=== PATIENT | female | born 1970 | race Caucasian/White ===

== ENCOUNTER 2020-08-02 15:09 | Emergency (ER) | payer BC ==
[2020-08-02] MEDS ORDERED: PROTONIX TR40 M1 PO (16:29)
[2020-08-02] MEDS ORDERED: COREG 25MG25 MG/TAB PO (16:30)
[2020-08-02] MEDS ORDERED: LEVOTHYROXINE100 MC1 PO (16:30)
[2020-08-02] MEDS ORDERED: ELIQUIS5 MG PO (16:30)
[2020-08-02] MEDS ORDERED: DITROPAN 5MG TAB5 MG PO (16:30)
[2020-08-02] MEDS ORDERED: LYRICA 150MG C150 MG PO (16:30)
[2020-08-02] MEDS ORDERED: LIPITOR20 M2 PO (16:31)
[2020-08-02] MEDS ORDERED: TRAMADOL 50 MG TAB PO (16:31)
[2020-08-02] MEDS ORDERED: PRILOSEC 20MG20 MG PO (16:31)
[2020-08-02] MEDS ORDERED: CYCLOBENZAPRINE10 M1 PO (16:31)
[2020-08-02] MEDS ORDERED: DESYREL 100MG100 MG PO (16:31)
[2020-08-02] MEDS ORDERED: CELEXA 20MG20 MG/TA1 PO (16:32)
[2020-08-02] MEDS ORDERED: XANAX0.5 M1 PO (16:32)
[2020-08-02] MEDS ORDERED: ANTIDEPRESSANT PO (16:32)
[2020-08-02 17:44] VITALS: BP 109/76
== END 2020-08-02 17:45 | disposition home or self-care (01) ==
LOC: ED 15:09
DX: S46.001A Unspecified injury of muscle(s) and tendon(s) of the rotator cuff of right shoulder, initial encounter (principal); M25.552 Pain in left hip; R07.81 Pleurodynia; F32.9 Major depressive disorder, single episode, unspecified; Z86.718 Personal history of other venous thrombosis and embolism; Z86.711 Personal history of pulmonary embolism; Z79.01 Long term (current) use of anticoagulants; Z79.891 Long term (current) use of opiate analgesic; W18.30XA Fall on same level, unspecified, initial encounter; Y92.090 Kitchen in other non-institutional residence as the place of occurrence of the external cause

== ENCOUNTER 2021-01-01 15:22 | Emergency (ER) | payer BC ==
[~2021-01-01 15:22] MED LIST: ANTIDEPRESSANT PO; CELEXA 20MG20 MG/TA1 PO; COREG 25MG25 MG/TAB PO; CYCLOBENZAPRINE10 M1 PO; DESYREL 100MG100 MG PO; DITROPAN 5MG TAB5 MG PO; ELIQUIS5 MG PO; LEVOTHYROXINE100 MC1 PO; LIPITOR20 M2 PO; LYRICA 150MG C150 MG PO; PRILOSEC 20MG20 MG PO; PROTONIX TR40 M1 PO; TRAMADOL 50 MG TAB PO; XANAX0.5 M1 PO
[2021-01-01] MEDS ORDERED: TOPIRAMATE25 MG PO (15:48)
[2021-01-01] MEDS ORDERED: DULOXETINE30 MG PO (15:48)
[2021-01-01] MEDS ORDERED: SUMATRIPTAN SU100 MG PO (15:48)
[2021-01-01 18:44] VITALS: BP 119/71
== END 2021-01-01 18:43 | disposition home or self-care (01) ==
LOC: ED 15:22
DX: R51.9 Headache, unspecified (principal); F07.81 Postconcussional syndrome; G89.29 Other chronic pain; M54.9 Dorsalgia, unspecified; F41.9 Anxiety disorder, unspecified; I10 Essential (primary) hypertension; F32.9 Major depressive disorder, single episode, unspecified; F17.200 Nicotine dependence, unspecified, uncomplicated; Z86.69 Personal history of other diseases of the nervous system and sense organs; Z86.718 Personal history of other venous thrombosis and embolism; Z86.711 Personal history of pulmonary embolism; Z79.01 Long term (current) use of anticoagulants
CPT/HCPCS: J0595; J2060; J7030

== ENCOUNTER 2021-03-15 13:55 | Outpatient (RCR) | payer BC ==
[~2021-03-15 13:55] MED LIST changes: +DULOXETINE30 MG PO; +SUMATRIPTAN SU100 MG PO; +TOPIRAMATE25 MG PO
== END 2021-06-13 | disposition home or self-care (01) ==
LOC: PT
DX: M25.512 Pain in left shoulder (principal); M75.02 Adhesive capsulitis of left shoulder

== ENCOUNTER 2021-11-16 12:49 | Outpatient (RCR) | payer BC | END 2021-12-11 | disposition home or self-care (01) | LOC: PT | DX: M25.512 Pain in left shoulder (principal) ==

== ENCOUNTER 2021-12-19 14:00 | Outpatient (RCR) | payer BC | END 2022-01-11 | disposition still patient (30) | LOC: PT | DX: M25.512 Pain in left shoulder (principal) ==

== ENCOUNTER → 2021-12-26 | Outpatient (CLI) | payer BC ==
[2021-12-26 15:18] LABS: BASO # 0.03 K/mm3 (0.02-0.10); EOS % 2.2 % (1.0-5.0); HEMATOCRIT 41.4 % (37.0-47.0); HEMOGLOBIN 13.7 g/dL (12.5-16.0); LYMPH# 2.88 K/mm3 (1.50-4.00); MEAN CELL VOLUME 94 fl (78-100); MEAN CORPUSCULAR HEMOGLOBIN 31 pg (27-31); MEAN CORPUSCULAR HGB CONC 33 g/dL (33-37); MEAN PLATELET VOLUME 9.2 fl (7.4-10.4); MONO # 0.62 K/mm3 (0.20-0.80); NEU # 5.27 K/mm3 (1.40-6.50); PLATELET COUNT 260 K/mm3 (130-400); RED BLOOD COUNT 4.43 M/mm3 (4.10-5.30); RED CELL DISTRIBUTION WIDTH 12.1 % (11.5-14.5)
[2021-12-26 15:33] LABS: ALBUMIN 4.5 g/dL (3.5-5.0); POTASSIUM 3.9 mmol/L (3.5-5.1)
[2021-12-26 15:35] LABS: CALCIUM 10.1 mg/dL (8.3-10.5)
[2021-12-26 15:36] LABS: TOTAL PROTEIN 7.5 g/dL (6.4-8.3)
[2021-12-26 15:38] LABS: TOTAL BILIRUBIN 0.6 mg/dL (0.2-1.2)
== END ==
LOC: LAB 15:02
PROVIDERS: Physician Assistant Medical
DX: R19.7 Diarrhea, unspecified (principal)

== ENCOUNTER → 2021-12-27 | Outpatient (CLI) | payer BC | LOC: LAB 11:19 | DX: R19.7 Diarrhea, unspecified (principal) ==

== ENCOUNTER 2022-01-15 13:00 | Outpatient (RCR) | payer BC | END 2022-01-26 17:00 | disposition still patient (30) | LOC: PT 13:00 | DX: M25.512 Pain in left shoulder (principal) ==